=== PATIENT | female | born 1995 | race African-American/Black ===

== ENCOUNTER 2021-12-01 00:45 | Inpatient (IN) | payer OTHER ==
[2021-12-01 01:20] VITALS: BMI 26.6
[2021-12-01] MEDS ORDERED: AMPICILLIN SODIUM 2 GM VIAL ONE (01:54)
[2021-12-01] MEDS ORDERED: FENTANYL/BUPIVACAINE/NS/PF - PCEA - 50 ML DISP.SYRIN EP ONE (01:59)
[2021-12-01] MEDS ORDERED: BUPIVACAINE HCL/PF 0.25% (2.5MG/ML) 10 ML VIAL ONE ×2 (02:22→03:56)
[2021-12-01] MEDS ORDERED: AMPICILLIN - 2 GM in SODIUM CHLORIDE 100 ML IVPB ONE (02:59)
[2021-12-01] MEDS ORDERED: OXYTOCIN 30 UNITS in 0.9% NS 30 UNIT/500 ML INFUS.BAG IVPB SCH (03:00)
[2021-12-01] MEDS ORDERED: ELECTROLYTE-148 SOLN 1,000 ML IV SCH (03:15)
[2021-12-01] MEDS ORDERED: NALOXONE HCL 0.4 MG/ML VIAL IVPUSH PRN (04:19)
[2021-12-01] MEDS ORDERED: FENTANYL/BUPIVACAINE/NS/PF - PCEA - 50 ML DISP.SYRIN EP SCH (04:30)
[2021-12-01] MEDS ORDERED: LIDOCAINE HCL 1% PRESERVATIVE FREE - 30ML VIAL ONE (04:57)
[2021-12-01] MEDS ORDERED: OXYTOCIN 20 UNITS in 0.9% NS 20 UNIT/1,000 ML INFUS.BAG IV ONE (04:57)
[2021-12-01] MEDS ORDERED: oxyCODONE HCL 5 MG TABLET PO PRN (06:42)
[2021-12-01] MEDS ORDERED: METHYLERGONOVINE MALEATE 0.2 MG/1 ML AMP IM PRN (06:42)
[2021-12-01] MEDS ORDERED: ACETAMINOPHEN 325 MG TABLET (FP) PO PRN (06:42)
[2021-12-01] MEDS ORDERED: WITCH HAZEL 50% (TUCKS) 40 PAD/JAR PAD TP PRN (06:42)
[2021-12-01] MEDS ORDERED: BENZOCAINE 28 GM HEMORRHOIDAL OINTMENT TP PRN (06:42)
[2021-12-01] MEDS ORDERED: BISACODYL 10 MG SUPP.RECT RC PRN (06:42)
[2021-12-01] MEDS ORDERED: OXYTOCIN 20 UNITS in 0.9% NS 20 UNIT/1,000 ML INFUS.BAG IV SCH (06:45)
[2021-12-01] MEDS ORDERED: AMPICILLIN - 1 GM in SODIUM CHLORIDE 100 ML IVPB SCH (07:00)
[2021-12-01 07:45] LABS: CORD BASE EXCESS -8.4 mmol/L (0-2); CORD HCO3 22.9 mmHg (20-29); CORD PCO2 72.4 mmHg (30-78); CORD pH 7.118 (7.14-7.44)
[2021-12-01 07:48] LABS: CORD BASE EXCESS -8.3 mmol/L (0-2); CORD HCO3 20.6 mmHg (20-29); CORD PCO2 55.4 mmHg (30-78); CORD pH 7.189 (7.14-7.44)
[2021-12-01 09:36] LABS: HEMATOCRIT 35.5 % (32.4-45.2); HEMOGLOBIN 11.9 GM/dL (10.7-15.3); MCH 30.3 pg (25.7-33.7); MCHC 33.5 g/dl (32.0-36.0); MEAN CELL VOLUME 90.5 fl (80-96); MEAN PLT VOLUME 9.2 fl (7.5-11.1); PLATELET COUNT 207 10^3/uL (134-434); RBC 3.93 M/mm3 (3.60-5.2); RDW 14.1 % (11.6-15.6)
[2021-12-01 09:39] LABS: RETICULOCYTES 1.31 % (0.5-1.5)
[2021-12-01 10:07] LABS: ALBUMIN 2.6 g/dl (3.4-5.0); BLOOD UREA NITROGEN 8.3 mg/dL (7-18); CALCIUM 8.5 mg/dL (8.5-10.1)
[2021-12-01 10:09] LABS: CREATININE 0.9 mg/dL (0.55-1.3); SGOT/AST 32 U/L (15-37); URIC ACID 4.9 mg/dL (2.6-7.2)
[2021-12-01 10:11] LABS: BILIRUBIN,TOTAL 0.5 mg/dL (0.2-1)
[2021-12-01 10:13] LABS: GAMMA GLUTAMYL TRANSPEPTIDASE 29 U/L (5-85)
[2021-12-01] MEDS: IBUPROFEN 600 MG TABLET (FP) PO PRN ×2 (15:34→20:43)
[2021-12-01] MEDS: BENZOCAINE 20% 57 GM BOTTLE TP PRN (15:34)
[2021-12-02 08:12] LABS: BASO % 0.5 % (0-2.0); EOS % 0.5 % (0-4.5); HEMATOCRIT 29.7 % (32.4-45.2); HEMOGLOBIN 9.8 GM/dL (10.7-15.3); LYMPH % 16.1 % (8-40); MCHC 33.2 g/dl (32.0-36.0); MEAN CELL VOLUME 90.4 fl (80-96); MEAN PLT VOLUME 8.6 fl (7.5-11.1); MONO % 7.3 % (3.8-10.2); NEUT % 75.6 % (42.8-82.8); PLATELET COUNT 178 10^3/uL (134-434); RBC 3.28 M/mm3 (3.60-5.2); RDW 14.3 % (11.6-15.6); WHITE BLOOD COUNT 14.3 K/mm3 (4.0-10.0)
[2021-12-02] MEDS: IBUPROFEN 600 MG TABLET (FP) PO PRN ×2 (13:38→19:53)
[2021-12-02] MEDS ORDERED: SENNOSIDES/DOCUSATE COMBO (SENNA PLUS) TABLET (UD) PO PRN (22:00)
[2021-12-03] MEDS: IBUPROFEN 600 MG TABLET (FP) PO PRN ×2 (06:26→20:20)
[2021-12-03] MEDS: BENZOCAINE 20% 57 GM BOTTLE TP PRN (20:21)
[2021-12-04] MEDS: IBUPROFEN 600 MG TABLET (FP) PO PRN (06:31)
[2021-12-04 09:52] VITALS: BP 128/66; PULSE 67; RESP 18; TEMP 98.4
== END 2021-12-04 15:20 | disposition home or self-care (01) | DRG 560 ==
LOC: JLDR 00:45 → J3W 08:09
PROVIDERS: ADMIT Internal Medicine; ATTEND Internal Medicine
PROC: 10E0XZZ Delivery of Products of Conception, External Approach (ICD-10-PCS; principal; 2021-12-01)
PROC: 0HQ9XZZ Repair Perineum Skin, External Approach (ICD-10-PCS; 2021-12-01)
DX: O70.0 First degree perineal laceration during delivery (principal); Z3A.40 40 weeks gestation of pregnancy; Z37.0 Single live birth
CPT/HCPCS: 36415; 36600; 59025; 59409; 80048; 80053; 82803; 82977; 83010; 84450; 84550; 85025; 85027; 85032; 85045; 85610; 85730; 86780; 86850; 86900; 86901; C9803-CS; U0003; U0005